=== PATIENT | female | born 1935 | race Caucasian/White ===

== ENCOUNTER 2016-05-22 11:15 | Outpatient (CLI) | payer MEDICARE, OTHER ==
[2016-05-22] MEDS ORDERED: GADOBUTROL 10 MMOL/10 ML VIAL IVP ONE (13:11)
== END 2016-05-22 11:16 | disposition home or self-care (01) ==
DX: G95.9 Disease of spinal cord, unspecified (principal); M51.36 Other intervertebral disc degeneration, lumbar region; M48.06 Spinal stenosis, lumbar region; M51.26 Other intervertebral disc displacement, lumbar region
CPT/HCPCS: 36415; 72158; 82565; 84520; A9585

== ENCOUNTER 2016-09-29 15:01 | Outpatient (CLI) | payer MEDICARE, OTHER | END 2016-09-29 15:02 | disposition home or self-care (01) | LOC: SC 15:01 | PROVIDERS: ATTEND Nurse Practitioner Family | DX: G47.33 Obstructive sleep apnea (adult) (pediatric) (principal); G47.00 Insomnia, unspecified | CPT/HCPCS: 99214; G0463; 99212 ==

== ENCOUNTER 2016-11-02 14:48 | Outpatient (CLI) | payer MEDICARE, OTHER | END 2016-11-02 14:49 | disposition home or self-care (01) | LOC: SC 14:48 | PROVIDERS: ATTEND Nurse Practitioner Family | DX: G47.33 Obstructive sleep apnea (adult) (pediatric) (principal); G47.00 Insomnia, unspecified | CPT/HCPCS: 99214; G0463; 99212 ==